=== PATIENT | female | born 1965 | race African-American/Black ===

== ENCOUNTER → 2020-07-14 | Outpatient (CLI) | payer MEDICAID, MEDICARE, OTHER | END | disposition home or self-care (01) | LOC: CVU 13:10 | PROVIDERS: ATTEND Internal Medicine Cardiovascular Disease | DX: I10 Essential (primary) hypertension (principal); R06.02 Shortness of breath | CPT/HCPCS: 93306 ==

== ENCOUNTER → 2020-07-24 | Outpatient (CLI) | payer MEDICARE, OTHER | END | disposition home or self-care (01) | LOC: CFH 12:02 | PROVIDERS: ATTEND Internal Medicine Cardiovascular Disease | DX: Z13.6 Encounter for screening for cardiovascular disorders (principal); I10 Essential (primary) hypertension; R91.1 Solitary pulmonary nodule | CPT/HCPCS: 75571 ==